=== PATIENT | female | born 1995 | race Caucasian/White ===

== ENCOUNTER 2022-09-02 21:07 | Emergency (ER) | payer MEDICAID ==
[~2022-09-02] VITALS: Ht 162.6 cm; Wt 49.9 kg
[2022-09-02 21:21] VITALS: BP_SYST 120
[2022-09-02 21:45] LABS: BILIRUBIN,URINE NEGATIVE (NEGATIVE); BLOOD, URINE NEGATIVE (NEGATIVE); COLOR,URINE YELLOW (YELLOW); GLUCOSE,URINE NEGATIVE (NEGATIVE); KETONES,URINE NEGATIVE (NEGATIVE); LEUKOCYTE ESTERASE ,URINE 2+ (NEGATIVE); NITRITE, URINE NEGATIVE (NEGATIVE); PROTEIN URINE NEGATIVE (NEGATIVE); UROBILINOGEN,URINE 0.2 (0.2-1.0)
[2022-09-02 21:46] LABS: CLARITY/URINE SLIGHTLY HAZY (CLEAR)
[2022-09-02 21:52] LABS: BACTERIA,URINE FEW /HPF (None Seen); RBC,URINE 0-3 /HPF (0-3)
[2022-09-02 21:53] LABS: HCG,QUAL RESULT NEGATIVE (NEGATIVE); MUCUS,URINE None Seen /LPF (None Seen)
[2022-09-02] MEDS ORDERED: NITR-85 PO (22:22)
[2022-09-02] MEDS ORDERED: IBUP-1969 PO (22:23)
[2022-09-02] MEDS ORDERED: NITROFURANTOIN MONOHYD/M-CRYST 100 MG CAPSULE (MacroBID) PO ONE (22:30)
[2022-09-02 22:44] VITALS: BP_SYST 134
== END 2022-09-02 22:44 | disposition home or self-care (01) ==
LOC: SED 21:07
DX: N91.0 Primary amenorrhea (principal); N39.0 Urinary tract infection, site not specified; R10.2 Pelvic and perineal pain; R25.2 Cramp and spasm; Z79.899 Other long term (current) drug therapy
CPT/HCPCS: 81000; 81025; 84703; 87086; 99283

== ENCOUNTER 2022-10-07 23:14 | Emergency (ER) | payer MEDICAID ==
[~2022-10-07] VITALS: Ht 167.6 cm; Wt 47.6 kg
[~2022-10-07 23:14] MED LIST: IBUP-1969 PO; NITR-85 PO
--- NOTE | 2022-10-07 23:35 | NUR ---
PATIENT PRESENTS WITH LEFT LOWER TOOTH PAIN, DECAYING TOOTH NOTED, PATIENT HAS AN APPOINTMENT TO REMOVED TOOTH ON MONDAY, 12/20 PAIN, ICE PACK GIVEN AT THIS TIME
[2022-10-07 23:36] VITALS: BP_SYST 108; PULSE 66; RESP 17; TEMP 97.9; O2SAT 96
--- NOTE | 2022-10-08 00:16 | NUR ---
REPORT GIVEN TO SANDRA ESCOBAR, PATIENT PLACED IN CHAIR 2
--- NOTE | 2022-10-08 00:20 | NUR ---
pt bib family member. c/o toothache. pt states to have rotten tooth for years but pain has become unbearable. Onset of pain 2 days. Pt pain 12/20. Pt states dentist appointment on monday. Pt states to be taking ibuprofen for pain but has not found relief. Noteable tooth crack, black around gums. R back teeth. Pt AAOX4. VSS. Skin dry and intact. Pt in bed with side rails up. Family member at bedside.
[2022-10-08] MEDS ORDERED: HYDROcodone/ACETAMIN 5-325 MG TAB (NORCO/ VICODIN) PO ONE (00:45)
[2022-10-08] MEDS ORDERED: BUPIVACAINE /PF 0.25% 30 ML VIAL INJ ONE (00:45)
[2022-10-08] MEDS ORDERED: HYDR-3927 PO (01:15)
--- NOTE | 2022-10-08 01:15 | NUR ---
ER at bedside examining patient.
[2022-10-08 01:28] VITALS: BP_SYST 108; PULSE 66; RESP 17; TEMP 97.9; O2SAT 96
--- NOTE | 2022-10-08 01:39 | NUR ---
Patient given written and verbal discharge instructions and verbalizes understanding. ER MD discussed with patient the results and treatment provided. Patient in stable condition. ID arm band removed. Rx of VITICAN 10-325 given. Patient educated on pain management and to follow up with PMD. Opportunity for questions provided and answered. Medication side effect fact sheet provided.
== END 2022-10-08 01:28 | disposition home or self-care (01) ==
LOC: SED 23:14
DX: K08.89 Other specified disorders of teeth and supporting structures (principal); R50.9 Fever, unspecified; Z79.899 Other long term (current) drug therapy
CPT/HCPCS: 99284; 64400; J3490

== ENCOUNTER 2022-12-17 00:18 | Emergency (ER) | payer MEDICAID ==
[~2022-12-17] VITALS: Ht 162.6 cm; Wt 49.4 kg
[~2022-12-17 00:18] MED LIST changes: +HYDR-3927 PO
[2022-12-17 01:00] VITALS: BP_SYST 108; PULSE 68; RESP 16; TEMP 97; O2SAT 100
[2022-12-17] MEDS ORDERED: LORazepam 1 MG TABLET PO ONE (01:45)
[2022-12-17] MEDS ORDERED: VIS25 PO (01:51)
[2022-12-17 01:59] VITALS: BP_SYST 107; PULSE 65; RESP 20; TEMP 97.8; O2SAT 98
== END 2022-12-17 01:58 | disposition home or self-care (01) ==
LOC: SED 00:18
DX: F41.9 Anxiety disorder, unspecified (principal); R06.02 Shortness of breath; Z79.899 Other long term (current) drug therapy
CPT/HCPCS: 99283